=== PATIENT | female | born 1935 | race African-American/Black ===

== ENCOUNTER 2020-12-26 23:17 | Inpatient (IN) | payer OTHER ==
[~2020-12-26] VITALS: Ht 152.4 cm; Wt 69.6 kg
[~2020-12-26 23:17] MED LIST: ALLOPURINOL 10100 M1 PO; ALTACE10 M1; ALTACE10 M1 PO; AMBIEN 10 MG TA10 MG; AMBIEN 10 MG TA10 MG PO; ATORVASTATIN CA40 MG PO; BACLOFEN 10MG T10 M1 PO; BACTRIM DS TAB1 EACH PO; BENADRYL25 MG PO; CARDURA1 MG; CARDURA1 MG PO; CARDURA2 MG; CARDURA2 MG PO; CATAPRES0.2 MG PO; CELEXA 20 MG TA20 M1; CELEXA 20 MG TA20 M1 PO; CLONIDINE HCL0.2 M2 PO; DOXYCYCLINE HY100 MG PO; FUROSEMIDE 40 M40 MG; FUROSEMIDE 80 M80 M1 PO; HYDROCODON-ACE1 EAC5 PO; HYDROCODON-ACE1 EACH PO; LANSOPRAZOLE; LISINOPRIL5 MG PO; MEDROLDOSEPACK PO; MUSCLE RELAXER; NEURONTIN 300300 M1 PO; NORCO 5-325 TA1 EACH PO; NORVASC 5 MG TAB5 MG PO; NORVASC10 MG PO; PARICALCITOL1 MCG PO; POTASSIUM20 PO; PRILOSEC 20 MG20 MG; SIMVASTATIN40 MG PO; TRANDATE 200 M200 M1 PO; VICODIN; VICODIN 5-5001 EACH PO; VITAMIN D1000 UNI1 PO; ZEMPLAR2 MCG PO
[2020-12-27 01:18] LABS: ABSOLUTE EOSINOPHILS 0.2 thou/uL (0.0-0.7); ABSOLUTE LYMPHOCYTES 0.8 thou/uL (0.8-5.3); ABSOLUTE MONOCYTES 0.5 thou/uL (0.0-1.2); BASOPHILS 0.4 %; HEMATOCRIT 28.8 % (37.0-47.0); HEMOGLOBIN 9.6 gm/dL (12.0-15.0); MCH 29.1 pg (26.0-34.0); MCHC 33.4 g/dL (28.0-37.0); MCV 87.2 fL (80.0-100.0); MONOCYTES 9.3 %; MPV 8.5 fl. (7.2-11.1); NUCLEATED RBCS 0 /100WBC; PLATELET COUNT* 157 thou/uL (150-400); POLYS 73.3 %; RDW-CV 15.3 % (10.5-14.5); WBC 5.4 thou/uL (4.0-11.0)
[2020-12-27 01:22] LABS: CALCIUM 8.8 mg/dL (8.5-10.1); CREATININE 1.3 mg/dL (0.6-1.3); POTASSIUM 3.7 mmol/L (3.5-5.1)
[2020-12-27 01:33] LABS: ALBUMIN 3.1 g/dL (3.4-5.0); MAGNESIUM 1.9 mg/dL (1.8-2.4); TOTAL BILIRUBIN 0.4 mg/dL (<0.1-1.0); TOTAL PROTEIN 6.6 g/dL (6.4-8.2)
[2020-12-27 06:50] LABS: % SATURATION 11 % (20-39); IRON 22 ug/dL (50-175)
[2020-12-27 10:54] VITALS: BP 191/83
--- NOTE | 2020-12-27 12:34 | EKG ---
[place] [address] ELECTROCARDIOGRAM REPORT Name: JASS MASCORRO Room: [place] [address] ADM IN .R.#: [id number] Admission: 12/27/20 Attend Phys: Anisa Dunn Discharge: Date of : 37 Date of Service: 12/26/20 2324 Report #: [id number] THIS REPORT FOR: //name// [facility] ED Test Date: 2020-12-26 Test Time: 23:24:13 Pat Name: JASS MASCORRO Department: Room: [facility] Gender: F Speech Therapy Teacher: JESSICA : 1935 Requested By: Renuka Ortiz Order Number: [id number] MD: Jacinto Morales Measurements Intervals [place] Rate: 83 P: -23 SC: 205 QRS: 18 QRSD: 87 T: 27 QT: 404 QTc: 475 Interpretive Statements Sinus rhythm Abnormal R-wave progression, late transition Compared to ECG 08/14/2015 22:56:10 Left ventricular hypertrophy no longer present Electronically Signed On 12-27-2020 12:34:33 CDT by Jacinto Morales [email or web address] <ELECTRONICALLY SIGNED> By: Jacinto Morales MD, [facility] 12/27/20 1234 2324 2324 Jacinto Morales MD, [facility] /EPI
[2020-12-27 13:37] LABS: BE 1.8 mmol/L (-2 to +3); PCO2 44.5 mmHg (35.0-45.0); PO2 90.1 mmHg (75.0-100.0); pH 7.401 (7.340-7.450)
--- NOTE | 2020-12-27 13:41 | 2DMMODE ---
[place] [address] 2 D/M-MODE ECHOCARDIOGRAM Name: SUBHAEMERITAE Room: [place] [address] ADM IN .Mary.#: [id number] Admission: 12/27/20 Attend Phys: Anisa Dunn Discharge: Date of : 37 Date of Service: 12/27/20 1341 Report #: [id number] THIS REPORT FOR: cc: FAM - No family physician/PCP FAM - No family physician/PCP Dejuan Mae MD [facility] ~ ADDENDUM APPROVED REPORT Study performed: 12/27/2020 10:02:14 EXAM: Comprehensive 2D, Doppler, and color-flow Echocardiogram Patient Location: In-Patient Room #: er Status: routine BSA: 1.67 HR: 61 bpm BP: 191/102 mmHg Rhythm: NSR Other Information Study Quality: Good Indications Congestive Heart Failure 2D Dimensions IVSd: 9.77 (7-11mm) LVOT Diam: 19.71 (18-24mm) LVDd: 49.21 mm PWd: 9.33 (7-11mm) Ascending Ao: 40.67 (22-36mm) LVDs: 29.95 (25-40mm) Aortic Root: 30.23 mm Volumes Left Atrial Volume (Systole) LA ESV Index: 64.00 mL/m2 Aortic Valve AoV Peak Kentrell.: 1.88 m/s AO Peak Gr.: 14.17 mmHg LVOT Max P.07 mmHg AO Mean Gr.: 7.12 mmHg LVOT Mean P.72 mmHg LVOT Max V: 1.01 m/s AO V2 VTI: 36.30 cm LVOT Mean V: 0.59 m/s VANDANA (VTI): 1.87 cm2 LVOT V1 VTI: 22.26 cm AI [place]: 4.66 m/s2 [place] [address] 2 D/M-MODE ECHOCARDIOGRAM Name: JASS MASCORRO Room: [place] [address] ADM IN M.R.#: [id number] Admission: 12/27/20 Attend Phys: Anisa Dunn Discharge: Date of : 37 Date of Service: 12/27/20 1341 Report #: [id number] AI PHT: 293.20 ms Mitral Valve E/A Ratio: 0.68 MV Decel. Time: 192.69 ms MV E Max Kentrell.: 0.75 m/s MV PHT: 55.88 ms MVA (PHT): 3.94 cm2 TDI E/Lateral E': 9.38 E/Medial E': 9.38 Medial E' Kentrell.: 0.08 m/s Lateral E' Kentrell.: 0.08 m/s Pulmonary Valve PV Peak Kentrell.: 1.03 m/s PV Peak Gr.: 4.22 mmHg Tricuspid Valve RAP Estimate: 5.00 mmHg TR Peak Gr.: 43.13 mmHg RVSP: 48.00 mmHg PA Pressure: 48.00 mmHg Left Ventricle The left ventricle is normal size. There is normal LV segmental wall motion. Mild concentric left ventricular hypertrophy. Left ventricular systolic function is normal. LVEF is 55-60%. Grade I - abnormal relaxation pattern. Right Ventricle Right ventricle is mildly dilated. The right ventricular systolic function is normal. Atria Left atrium is severely dilated. Right atrium is moderately dilated. Aortic Valve Mild aortic valve sclerosis. Moderate aortic regurgitation. Mild aortic stenosis. Mitral Valve The mitral valve is normal in structure. Mild mitral regurgitation. No evidence of mitral valve stenosis. Tricuspid Valve The tricuspid valve is normal in structure[place] [address] 2 D/M-MODE ECHOCARDIOGRAM Name: JASS MASCORRO Room: [address] IN [facility]#: [id number] Admission: 12/27/20 Attend Phys: Anisa Dunn Discharge: Date of : 37 Date of Service: 12/27/20 1341 Report #: [id number] regurgitation. Moderate pulmonary hypertension. The RVSP is 50-55 mmHg. Pulmonic Valve The pulmonary valve is normal in structure. Moderate pulmonic regurgitation. Great Vessels The aortic root is normal in size. The ascending aorta is mildly dilated. IVC is normal in size and collapses >50% with inspiration. Pericardium There is no pericardial effusion. <Conclusion> The left ventricle is normal size. Mild concentric left ventricular hypertrophy. Left ventricular systolic function is normal. LVEF is 55-60%. Grade I - abnormal relaxation pattern. There is normal LV segmental wall motion. Right ventricle is mildly dilated. Left atrium is severely dilated. Right atrium is moderately dilated. Mild aortic valve sclerosis. Moderate aortic regurgitation. Mild aortic stenosis. Mild mitral regurgitation. Mild tricuspid regurgitation. Moderate pulmonary hypertension. The RVSP is 50-55 mmHg. Moderate pulmonic regurgitation. IVC is normal in size and collapses >50% with inspiration. The ascending aorta is mildly dilated. <ELECTRONICALLY SIGNED> By: Dejuan Mae MD, FACC 12/27/20 1341 1341 1341 Dejuan Mae MD, FACC /INF
[2020-12-27 14:41] VITALS: BP 160/88
[2020-12-27 16:22] VITALS: BP 174/94
== END 2020-12-27 16:22 | disposition short-term general hospital (02) | DRG 915 ==
LOC: M.ERS 23:17 → M.TBA-ER 12-27 06:54
PROVIDERS: Emergency Medicine; Internal Medicine; ADMIT Internal Medicine; ATTEND Internal Medicine
DX: T78.3XXA Angioneurotic edema, initial encounter (principal); J96.91 Respiratory failure, unspecified with hypoxia; I16.0 Hypertensive urgency; I10 Essential (primary) hypertension; T50.8X5A Adverse effect of diagnostic agents, initial encounter; Z20.822 Contact with and (suspected) exposure to COVID-19; Z96.643 Presence of artificial hip joint, bilateral; Z88.0 Allergy status to penicillin; Z79.899 Other long term (current) drug therapy; Z88.1 Allergy status to other antibiotic agents; Y92.89 Other specified places as the place of occurrence of the external cause

== ENCOUNTER 2021-08-04 18:14 | Emergency (ER) | payer OTHER ==
[~2021-08-04] VITALS: Ht 152.4 cm; Wt 54.4 kg
[2021-08-04] MEDS ORDERED: TRAMADOL 50 MG50 MG PO (18:32)
[2021-08-04] MEDS ORDERED: CARDURA2 MG PO (18:32)
[2021-08-04] MEDS ORDERED: IMDUR 60 MG TAB60 M1 PO (18:33)
[2021-08-04] MEDS ORDERED: CLONIDINE HCL0.1 M1 PO (18:33)
[2021-08-04] MEDS ORDERED: OMEPRAZOLE 20 M20 M1 PO (18:33)
[2021-08-04] MEDS ORDERED: TOPROL XL25 MG PO (18:34)
[2021-08-04] MEDS ORDERED: PREVACID30 MG PO (18:34)
[2021-08-04 21:22] LABS: URINE BILIRUBIN NEGATIVE (Negative); URINE BLOOD NEGATIVE (Negative); URINE CLARITY CLEAR; URINE COLOR YELLOW; URINE GLUCOSE-RANDOM NEGATIVE (Negative); URINE KETONES NEGATIVE (Negative); URINE LEUKOCYTES-REFLEX NEGATIVE (Negative); URINE NITRITE-REFLEX NEGATIVE (Negative); URINE PROTEIN NEGATIVE (Negative); URINE SPECIFIC GRAVITY 1.025 (1.005-1.030); URINE UROBILINOGEN 0.2 E.U./dl (0.2-1.0)
[2021-08-04 21:54] LABS: ABSOLUTE EOSINOPHILS 0.2 thou/uL (0.0-0.7); ABSOLUTE LYMPHOCYTES 1.4 thou/uL (0.8-5.3); ABSOLUTE MONOCYTES 0.5 thou/uL (0.0-1.2); ABSOLUTE NEUTROPHILS 2.5 thou/uL (1.6-8.1); BASOPHILS 0.7 %; EOSINOPHILS 3.6 %; HEMATOCRIT 31.9 % (37.0-47.0); HEMOGLOBIN 10.2 gm/dL (12.0-15.0); LYMPHOCYTES 30.8 %; MCH 28.5 pg (26.0-34.0); MCHC 32.1 g/dL (28.0-37.0); MCV 88.7 fL (80.0-100.0); MONOCYTES 10.1 %; MPV 8.3 fl. (7.2-11.1); NUCLEATED RBCS 0 /100WBC; PLATELET COUNT* 170 thou/uL (150-400); POLYS 54.8 %; RBC 3.59 mil/uL (4.20-5.00); RDW-CV 14.8 % (10.5-14.5); WBC 4.6 thou/uL (4.0-11.0)
[2021-08-04 22:01] LABS: CALCIUM 9.2 mg/dL (8.5-10.1); CREATININE 2.5 mg/dL (0.6-1.3); POTASSIUM 4.9 mmol/L (3.5-5.1)
[2021-08-04 22:07] LABS: ALBUMIN 3.4 g/dL (3.4-5.0); TOTAL BILIRUBIN 0.3 mg/dL (<0.1-1.0); TOTAL PROTEIN 6.4 g/dL (6.4-8.2)
[2021-08-05 00:01] VITALS: BP 169/97
== END 2021-08-05 00:01 | disposition home or self-care (01) ==
LOC: M.ERS 18:14
PROVIDERS: Personal Emergency Response Attendant
DX: I12.9 Hypertensive chronic kidney disease with stage 1 through stage 4 chronic kidney disease, or unspecified chronic kidney disease (principal); N18.9 Chronic kidney disease, unspecified; Z88.0 Allergy status to penicillin; Z88.6 Allergy status to analgesic agent; Z79.899 Other long term (current) drug therapy; Z96.643 Presence of artificial hip joint, bilateral